=== PATIENT | female | born 1965 | race Caucasian/White ===

== ENCOUNTER 2017-07-17 12:59 | Emergency (ER) | payer OTHER ==
[~2017-07-17] VITALS: Ht 167.6 cm; Wt 56.0 kg
[~2017-07-17 12:59] MED LIST: ZOLOFT50 MG
[2017-07-17 13:59] LABS: HEMATOCRIT 41.2 % (36.0-46.0); HEMOGLOBIN 14.1 G/DL (11.9-15.5); MCH 30.7 PG (29.0-34.0); MCHC 34.2 G/DL (30.0-36.0); MCV 89.6 FL (83-99); PLATELET COUNT 354 K/uL (156-360); RBC DIS.WIDTH-CV 12.3 % (11.8-14.6); RBC DIS.WIDTH-SD 39.9 % (39-53); WHITE BLOOD COUNT 6.7 K/uL (4.1-10.2)
[2017-07-17 14:09] LABS: ALBUMIN 4.6 g/dL (3.2-4.8)
[2017-07-17 14:10] LABS: CHLORIDE 105 mEq/L (99-109); POTASSIUM 3.8 mEq/L (3.7-5.4); SODIUM 139 mEq/L (136-147)
[2017-07-17 14:12] LABS: GLUCOSE 78 mg/dL (70-99); TOTAL PROTEIN 8.2 g/dL (6.4-8.3)
[2017-07-17 14:14] LABS: TOTAL BILIRUBIN 0.5 mg/dL (0.0-1.0)
[2017-07-17 14:15] LABS: ALKALINE PHOSPHATASE 86 IU/L (3-129)
[2017-07-17 14:16] LABS: CREATININE 0.8 mg/dL (0.6-1.3); GFR ESTIMATE (CALCULATED) > 59 mL/min/
[2017-07-17 14:17] LABS: AST (GOT) 21 IU/L (2-34); UREA NITROGEN (BUN) 17 mg/dL (9-23)
[2017-07-17 14:19] LABS: ALT (GPT) 19 IU/L (3-49)
[2017-07-17 14:24] LABS: QUANTITATIVE HCG < 4.0 MIU/ML
[2017-07-17] MEDS ORDERED: PREDNISONE50 MG PO (15:25)
[2017-07-17] MEDS ORDERED: ZOFRAN ODT4 MG PO (15:25)
[2017-07-17] MEDS ORDERED: BENTYL10 MG PO (15:25)
[2017-07-17 17:19] VITALS: BP 118/76
== END 2017-07-17 17:20 | disposition home or self-care (01) ==
LOC: EME 12:59
DX: R11.2 Nausea with vomiting, unspecified (principal); R19.7 Diarrhea, unspecified; E86.0 Dehydration; R21 Rash and other nonspecific skin eruption
CPT/HCPCS: 80053; 81003; 84702; 85027; 99281; 99284; J2405; J7030; J7512